=== PATIENT | female | born 1980 | race American Indian/Alaskan Native ===

== ENCOUNTER 2017-06-03 06:34 | Emergency (ER) | payer MEDICAID ==
[2017-06-03 07:03] LABS: Basophils % (Auto) 0.5 % (0.0-1.8); Eosinophils # (Auto) 0.1 K/mm3 (0.0-0.4); Eosinophils % (Auto) 1.2 % (0.0-4.3); Hematocrit 33.5 % (30.3-42.9); Hemoglobin 11.2 gm/dl (10.1-14.3); Lymphocytes # (Auto) 2.7 K/mm3 (1.2-5.4); Lymphocytes % (Auto) 41.7 % (13.4-35.0); Mean Corpuscular HGB Conc 33 % (30-34); Mean Corpuscular Hemoglobin 29 pg (28-32); Mean Corpuscular Volume 86 fl (79-97); Monocytes # (Auto) 0.4 K/mm3 (0.0-0.8); Monocytes % (Auto) 6.1 % (0.0-7.3); Platelet Count 224 K/mm3 (140-440); Red Blood Count 3.91 M/mm3 (3.65-5.03); Red Cell Distribution Width 14.1 % (13.2-15.2)
[2017-06-03 08:02] LABS: Bilirubin,Urine NEG (Negative); Blood,Urine NEG (Negative); Color,Urine Yellow (Yellow); Hyaline Casts,Urine 1 /LPF; Mucus,Urine 3+ /HPF; Protein,Urine <15 mg/dL mg/dL (Negative)
--- NOTE | 2017-06-03 08:49 | Emergency Department Report ---
ED Female HPI - General Chief complaint: Vaginal Bleeding Stated complaint: VAG BLEEDING Time Seen by Provider: 06/03/17 08:01 Source: patient Mode of arrival: Ambulatory Limitations: No Limitations - History of Present Illness Initial comments: Ms. Dudley is who presents with 2-3 weeks of vaginal bleeding and vaginal odor. February 11, she underwent elective surgical . Several week after initial procedure after ED evaluation, she required a subsequent surgery. She has been treated with Flagyl twice since procedure. She has been sexually active since procedure. She uses condom for contraception. At one instance, condom did break. She denies abdominal or pelvic pain. She has had 4 surgical abortions. MD Complaint: vaginal bleeding -: week(s) (2) Severity: moderate - Related Data Previous Rx's Medication Instructions Recorded Last Taken Type metroNIDAZOLE [Flagyl] 500 mg PO Q12HR 7 Days #14 tab 06/03/17 Unknown Rx Allergies Allergy/AdvReac Type Severity Reaction Status Date / Time No Known Allergies Allergy Unverified 06/03/17 06:40 ED Review of Systems ROS: Stated complaint: VAG BLEEDING Other details as noted in HPI ED Past Medical Hx - Past Medical History Previous Medical History?: No - Surgical History Past Surgical History?: Yes Additional Surgical History: c secX1, D&C - Social History Smoking Status: Former Smoker Substance Use Type: None - Medications Home Medications: Home Medications Medication Instructions Recorded Confirmed Last Taken Type metroNIDAZOLE [Flagyl] 500 mg PO Q12HR 7 Days #14 tab 06/03/17 Unknown Rx ED Physical Exam - General Limitations: No Limitations General appearance: alert, in no apparent distress - Head Head exam: Present: atraumatic, normocephalic - Eye Eye exam: Present: normal appearance - ENT ENT exam: Present: normal orophraynx, mucous membranes moist - Neck Neck exam: Present: normal inspection. Absent: meningismus - Respiratory Respiratory exam: Present: normal lung sounds bilaterally. Absent: respiratory distress, wheezes, rales, rhonchi - Cardiovascular Cardiovascular Exam: Present: regular rate, normal rhythm, normal heart sounds. Absent: bradycardia, tachycardia, systolic murmur, diastolic murmur, rubs, gallop - GI/Abdominal GI/Abdominal exam: Present: soft, normal bowel sounds. Absent: distended, tenderness, guarding, rebound - External exam: Present: normal external exam. Absent: erythema, lesions, lacerations Speculum exam: Present: vaginal bleeding, other (brick red brown blood, mucus at cervix) - Extremities Exam Extremities exam: Present: normal inspection - Back Exam Back exam: Present: normal inspection - Neurological Exam Neurological exam: Present: alert, oriented X3 - Psychiatric Psychiatric exam: Present: normal affect, normal mood - Skin Skin exam: Present: warm, dry, intact, normal color. Absent: rash ED Course Vital Signs 06/03/17 06/03/17 06/03/17 06:41 08:14 08:30 Temperature 98.8 F 97.6 F Pulse Rate 80 70 72 Respiratory 18 12 16 Rate Blood Pressure 117/75 109/78 116/79 O2 Sat by Pulse 99 100 100 Oximetry 06/03/17 06/03/17 06/03/17 09:00 09:46 10:00 Temperature Pulse Rate 71 Respiratory 24 14 9 L Rate Blood Pressure 113/76 113/76 113/76 O2 Sat by Pulse 100 100 100 Oximetry 06/03/17 10:30 Temperature Pulse Rate 70 Respiratory 13 Rate Blood Pressure 113/76 O2 Sat by Pulse 100 Oximetry ED Medical Decision Making - Lab Data Result diagrams: 06/03/17 06:51 Laboratory Results - last 24 hr 06/03/17 06/03/17 06/03/17 06:51 06:51 06:51 WBC 6.5 RBC 3.91 Hgb 11.2 Hct 33.5 MCV 86 MCH 29 MCHC 33 RDW 14.1 Plt Count 224 Lymph % (Auto) 41.7 H Stokes % (Auto) 6.1 Eos % (Auto) 1.2 Baso % (Auto) 0.5 Lymph # 2.7 Stokes # 0.4 Eos # 0.1 Baso # 0.0 Seg Neutrophils % 50.5 Seg Neutrophils # 3.3 HCG, Quant 1755 H Urine Color Urine Turbidity Urine pH Ur Specific [place] Urine Protein Urine Glucose (UA) Urine Ketones Urine Blood Urine Nitrite Urine Bilirubin Urine Urobilinogen Ur Leukocyte Esterase Urine WBC (Auto) Urine RBC (Auto) U Epithel Cells (Auto) Hyaline Casts Urine Mucus Blood Type O POSITIVE Antibody Screen Negative 06/03/17 06:58 WBC RBC Hgb Hct MCV MCH MCHC RDW Plt Count Lymph % (Auto) Stokes % (Auto) Eos % (Auto) Baso % (Auto) Lymph # Stokes # Eos # Baso # Seg Neutrophils % Seg Neutrophils # HCG, Quant Urine Color Yellow Urine Turbidity Clear Urine pH 5.0 Ur Specific [place] 1.030 Urine Protein <15 mg/dl Urine Glucose (UA) Neg Urine Ketones Neg Urine Blood Neg Urine Nitrite Neg Urine Bilirubin Neg Urine Urobilinogen 2.0 Ur Leukocyte Esterase Neg Urine WBC (Auto) 2.0 Urine RBC (Auto) 1.0 U Epithel Cells (Auto) 5.0 Hyaline Casts 1 Urine Mucus 3+ Blood Type Antibody Screen Laboratory Results - last 24 hr 06/03/17 06/03/17 06/03/17 06:51 06:51 06:51 WBC 6.5 RBC 3.91 Hgb 11.2 Hct 33.5 MCV 86 MCH 29 MCHC 33 RDW 14.1 Plt Count 224 Lymph % (Auto) 41.7 H Stokes % (Auto) 6.1 Eos % (Auto) 1.2 Baso % (Auto) 0.5 Lymph # 2.7 Stokes # 0.4 Eos # 0.1 Baso # 0.0 Seg Neutrophils % 50.5 Seg Neutrophils # 3.3 HCG, Quant 1755 H Urine Color Urine Turbidity Urine pH Ur Specific [place] Urine Protein Urine Glucose (UA) Urine Ketones Urine Blood Urine Nitrite Urine Bilirubin Urine Urobilinogen Ur Leukocyte Esterase Urine WBC (Auto) Urine RBC (Auto) U Epithel Cells (Auto) Hyaline Casts Urine Mucus Blood Type O POSITIVE Antibody Screen Negative 06/03/17 06:58 WBC RBC Hgb Hct MCV MCH MCHC RDW Plt Count Lymph % (Auto) Stokes % (Auto) Eos % (Auto) Baso % (Auto) Lymph # Stokes # Eos # Baso # Seg Neutrophils % Seg Neutrophils # HCG, Quant Urine Color Yellow Urine Turbidity Clear Urine pH 5.0 Ur Specific [place] 1.030 Urine Protein <15 mg/dl Urine Glucose (UA) Neg Urine Ketones Neg Urine Blood Neg Urine Nitrite Neg Urine Bilirubin Neg Urine Urobilinogen 2.0 Ur Leukocyte Esterase Neg Urine WBC (Auto) 2.0 Urine RBC (Auto) 1.0 U Epithel Cells (Auto) 5.0 Hyaline Casts 1 Urine Mucus 3+ Blood Type Antibody Screen Vital Signs 06/03/17 06/03/17 06:41 08:14 Temperature 98.8 F 97.6 F Pulse Rate 80 70 Respiratory 18 12 Rate Blood Pressure 117/75 109/78 O2 Sat by Pulse 99 100 Oximetry - Medical Decision Making missed most likely, patient will return to ED in 2 days for repeat HCG quant patient is pain free, ectopic is possible with hx of multiple gynecological surgical procedures. She understands return precautions. Critical care attestation.: If time is entered above; I have spent that time in minutes in the direct care of this critically ill patient, excluding procedure time. ED Disposition Clinical Impression: Missed , Bacterial vaginosis Disposition: TO HOME OR SELFCARE Is pt being admited?: No Does the pt Need Aspirin: No Condition: Stable Instructions: Spontaneous Miscarriage (ED), Bacterial Vaginosis (ED) Additional Instructions: Please return to the ER in 2 days for repeat beta hCG, the blood test for . Return to the ER immediately if you develop pain or heavy bleeding. Prescriptions: metroNIDAZOLE [Flagyl] 500 mg PO Q12HR 7 Days #14 tab Referrals: PRIMARY CARE, [Primary Care Provider] - 3-5 Days Time of Disposition: 13:41
--- NOTE | 2017-06-03 10:52 | Ultrasound Report ---
ULTRASOUND OB LESS THAN 14 WEEKS - TRANSABDOMINAL AND TRANSVAGINAL INDICATION: Bleeding, incomplete . First in February and D&C in April. Serum beta-hCG of 1755 units. COMPARISON: None similar. FINDINGS: Transabdominal and transvaginal pelvic sonography performed in this patient with LMP unknown. An anteverted 9.4 x 5.7 x 7.9 cm uterus noted with a nonspecific 0.6 x 0.3 cm cystic focus along the endometrium. Endometrial thickness estimated at 1.2 cm, endovaginal image 5. Small pelvic free fluid. Unremarkable 2.9 x 1.7 x 2.1 cm right ovary. The left ovary is 3.4 x 2.5 x 3 cm and demonstrates a 1.9 cm cyst, endovaginal image 19. CONCLUSION: 1. No sonographic evidence of a viable intrauterine gestation at this time with a nonspecific endometrial cystic focus and uterine heterogeneity, as described. 2. Both ovaries identified, as above. Please also correlate clinically, with serial serum beta-hCG values and/or followup sonogram, as warranted. Thank you for the opportunity to participate in this patient's care.
[2017-06-03 14:00] VITALS: BP 118/89
== END 2017-06-03 14:12 | disposition home or self-care (01) ==
LOC: ED 06:34
DX: O02.1 Missed abortion (principal); N76.0 Acute vaginitis; Z3A.00 Weeks of gestation of pregnancy not specified
CPT/HCPCS: 36415; 76801; 76817; 81001; 84702; 85025; 86850; 86900; 86901; 87210; 87591

== ENCOUNTER 2017-06-26 09:18 | Emergency (ER) | payer SELFPAY ==
[2017-06-26 10:23] LABS: Basophils % (Auto) 0.3 % (0.0-1.8); Eosinophils # (Auto) 0.1 K/mm3 (0.0-0.4); Eosinophils % (Auto) 1.3 % (0.0-4.3); Hematocrit 34.1 % (30.3-42.9); Hemoglobin 11.2 gm/dl (10.1-14.3); Lymphocytes % (Auto) 33.4 % (13.4-35.0); Mean Corpuscular HGB Conc 33 % (30-34); Mean Corpuscular Hemoglobin 29 pg (28-32); Mean Corpuscular Volume 87 fl (79-97); Monocytes # (Auto) 0.4 K/mm3 (0.0-0.8); Monocytes % (Auto) 6.3 % (0.0-7.3); Platelet Count 227 K/mm3 (140-440); Red Blood Count 3.92 M/mm3 (3.65-5.03); Red Cell Distribution Width 14.6 % (13.2-15.2)
[2017-06-26 11:21] LABS: Bilirubin,Urine NEG (Negative); Blood,Urine NEG (Negative); Color,Urine Yellow (Yellow); Mucus,Urine 2+ /HPF; Protein,Urine <15 mg/dL mg/dL (Negative); Urobilinogen,Urine < 2.0 mg/dL (<2.0)
[2017-06-26 11:22] LABS: WBC,Urine < 1.0 /HPF (0.0-6.0)
[2017-06-26 20:00] VITALS: BP 109/70
--- NOTE | 2017-06-26 20:36 | Emergency Department Report ---
ED Female HPI - General Chief complaint: Vaginal Bleeding Stated complaint: VAGINAL BLEEDING Time Seen by Provider: 06/26/17 20:20 Source: patient Mode of arrival: Ambulatory Limitations: No Limitations - History of Present Illness Initial comments: Patient is 37 years old female this is her second visit to this ER in 1 month. Patient had in February that was not complete and she went for D&C after that. One week later she came to the ER here and found that to have a beta-hCG of 1700 and ultrasound was inconclusive. Patient presented today stating that she still having vaginal bleeding was vaginal discharge patient was treated with Flagyl last time. Patient denied any fever nausea or vomiting. However beta hCG today is 132. Complaint: vaginal bleeding, vaginal discharge -: Gradual, week(s) Quality: cramping Associated Symptoms: vaginal discharge, vaginal bleeding - Related Data Previous Rx's Medication Instructions Recorded Last Taken Type metroNIDAZOLE [Flagyl] 500 mg PO Q12HR 7 Days #14 tab 06/03/17 Unknown Rx Allergies Allergy/AdvReac Type Severity Reaction Status Date / Time No Known Allergies Allergy Unverified 06/03/17 06:40 ED Review of Systems ROS: Stated complaint: VAGINAL BLEEDING Other details as noted in HPI Comment: All other systems reviewed and negative Constitutional: denies: chills, fever Respiratory: denies: cough, shortness of breath, SOB with exertion Cardiovascular: denies: chest pain Gastrointestinal: denies: abdominal pain, nausea, vomiting Genitourinary: abnormal menses. denies: urgency, dysuria, hematuria Neurological: denies: headache, weakness ED Past Medical Hx - Past Medical History Previous Medical History?: Yes Additional medical history: 9, Para 3, BV - Surgical History Past Surgical History?: Yes Additional Surgical History: c secX1, D&C, x 5 - Social History Smoking Status: Former Smoker - Medications Home Medications: Home Medications Medication Instructions Recorded Confirmed Last Taken Type metroNIDAZOLE [Flagyl] 500 mg PO Q12HR 7 Days #14 tab 06/03/17 Unknown Rx ED Physical Exam - General Limitations: No Limitations General appearance: alert, in no apparent distress - Head Head exam: Present: atraumatic, normocephalic, normal inspection - Eye Eye exam: Present: normal appearance - ENT ENT exam: Present: normal exam, normal orophraynx, mucous membranes moist - Neck Neck exam: Present: normal inspection - Respiratory Respiratory exam: Present: normal lung sounds bilaterally. Absent: respiratory distress, wheezes, rales, rhonchi, chest wall tenderness, accessory muscle use, decreased breath sounds, prolonged expiratory - Cardiovascular Cardiovascular Exam: Present: regular rate, normal rhythm, normal heart sounds - GI/Abdominal GI/Abdominal exam: Present: soft, normal bowel sounds. Absent: distended, tenderness, guarding, rebound, rigid, organomegaly, mass, bruit, pulsatile mass - Extremities Exam Extremities exam: Present: normal inspection, full ROM, normal capillary refill - Back Exam Back exam: Present: normal inspection, full ROM. Absent: tenderness, CVA tenderness (R), CVA tenderness (L), muscle spasm - Neurological Exam Neurological exam: Present: alert, oriented X3, CN II-XII intact, normal gait - Skin Skin exam: Present: warm, intact, normal color ED Course Vital Signs 06/26/17 06/26/17 06/26/17 09:43 19:27 19:59 Temperature 98 F 98.5 F 97.9 F Pulse Rate 77 70 74 Respiratory 16 18 16 Rate Blood Pressure 123/79 110/76 Blood Pressure 109/70 [Right] O2 Sat by Pulse 100 100 100 Oximetry ED Medical Decision Making - Lab Data Result diagrams: 06/26/17 10:15 Critical care attestation.: If time is entered above; I have spent that time in minutes in the direct care of this critically ill patient, excluding procedure time. ED Disposition Clinical Impression: Abnormal vaginal bleeding, Concern about STD in female without diagnosis Disposition: -01 TO HOME OR SELFCARE Is pt being admited?: No Condition: Stable Instructions: Menstruation (ED), Sexually Transmitted Diseases (ED) Referrals: PRIMARY CARE, [Primary Care Provider] - 3-5 Days
[2017-06-26] MEDS ORDERED: XYLOCAINE 1% MPF 5 mL INFILTRATI ONE (20:37)
[2017-06-26] MEDS ORDERED: ZITHROMAX PO ONE (20:37)
[2017-06-26] MEDS ORDERED: ROCEPHIN IM ONE (20:37)
== END 2017-06-26 21:05 | disposition home or self-care (01) ==
LOC: ED 09:18
DX: N93.9 Abnormal uterine and vaginal bleeding, unspecified (principal); R10.2 Pelvic and perineal pain; Z87.891 Personal history of nicotine dependence
CPT/HCPCS: 36415; 81001; 84702; 85025; 96372; 99283; J0696